=== PATIENT | female | born 1985 ===

== ENCOUNTER 2018-12-05 16:01 | Inpatient (IN) ==
[2018-12-05] MEDS ORDERED: Vancomycin (wt based) 1,000 MG VIAL IV STA (17:15)
[2018-12-05] MEDS ORDERED: Piperacillin/Tazobactam 3.375 GM in 0.9 % Sodium Chloride Mini Bag 100 ML IVPB ONE (17:15)
[2018-12-05 17:44] LABS: Basophils % 0.2 %; Eosinophils # 0.2 K/mcL (0.0-0.6); Eosinophils % 0.8 %; Hematocrit 27.9 % (35.3-44.9); Hemoglobin 8.5 g/dL (11.5-15.4); Immature Granulocytes % 1.3 % (0-4); Lymphocytes % 7.2 %; Mean Corpuscular HGB Conc 30.5 g/dL (31.6-35.5); Mean Corpuscular Hemoglobin 27.2 pg (28.0-33.3); Mean Corpuscular Volume 89.1 fL (83.0-100.0); Mean Platelet Volume 9.9 fL (9.4-12.4); Monocytes % 7.8 %; Neutrophils # 21.1 K/mcL (1.6-8.9); Platelet Count 382 K/mcL (140-400); Red Blood Count 3.13 M/mcL (3.82-4.97); Red Cell Distribution Width 15.4 % (11.5-14.5); Segmented Neutrophils % 82.7 %; White Blood Count 25.5 K/mcL (4.3-11.1)
[2018-12-05 17:45] LABS: Basophils # 0.1 K/mcL (0.0-0.2); Lymphocytes # 1.8 K/mcL (0.6-4.6)
[2018-12-05 18:02] LABS: Calcium 8.6 mg/dL (8.6-10.3)
[2018-12-05 18:04] LABS: Reactive Lymphocytes Present (Not Present)
[2018-12-05] MEDS ORDERED: 0.9 % Sodium Chloride 1,000 ML IVC ONE (18:20)
[2018-12-05] MEDS ORDERED: Ringers Solution, Lactated 1,000 ML IVC ONE ×2 (18:29→18:30)
[2018-12-05] MEDS ORDERED: Vancomycin 1,750 MG in 0.9 % Sodium Chloride 250 ML IVPB SCH (19:00)
[2018-12-05] MEDS ORDERED: Clindamycin 600 MG/50 ML 600 MG/50 ML IV.SOLN IVPB SCH (20:00)
[2018-12-05] MEDS ORDERED: Ondansetron ODT 4 MG TAB.RAPDIS SL PRN (20:24)
[2018-12-05] MEDS ORDERED: Naloxone 0.4 MG/ML INJ IVP PRN (20:24)
[2018-12-05] MEDS ORDERED: *HR* OxyCODONE Immed Rel 5 MG TABLET PO PRN (20:24)
[2018-12-05] MEDS ORDERED: *HR* Promethazine 25 MG/ML VIAL IVP PRN (20:24)
[2018-12-05] MEDS ORDERED: Acetaminophen 325 MG TABLET PO PRN (20:24)
[2018-12-05] MEDS ORDERED: Lidocaine -MPF 2% 2 ML VIAL ONE (21:24)
[2018-12-05] MEDS ORDERED: *HR* Propofol 200 MG/20 ML VIAL IVP ONE (21:24)
[2018-12-06] MEDS ORDERED: Piperacillin/Tazobactam 3.375 GM in 0.9 % Sodium Chloride Mini Bag 100 ML IVPB SCH
[2018-12-06] MEDS ORDERED: Vancomycin 1,000 MG VIAL ONE (00:30)
[2018-12-06] MEDS ORDERED: Famotidine 20 MG/2 ML VIAL ONE (00:40)
[2018-12-06] MEDS ORDERED: Acetaminophen IV 1,000 MG/100 ML INFUS..BTL ONE (00:40)
[2018-12-06] MEDS ORDERED: Bupivacaine-MPF 0.25% 10 ML VIAL ONE (00:42)
[2018-12-06] MEDS ORDERED: Acetaminophen IV 1,000 MG/100 ML INFUS..BTL IVPB ONE (00:55)
[2018-12-06] MEDS ORDERED: *HR* OxyCODONE Immed Rel 5 MG TABLET PO PRN (02:06)
[2018-12-06] MEDS ORDERED: *HR* Promethazine 25 MG/ML VIAL IVP PRN (02:06)
[2018-12-06] MEDS ORDERED: Acetaminophen 325 MG TABLET PO PRN (02:06)
[2018-12-06] MEDS ORDERED: Ringers Solution, Lactated 1,000 ML IVC ONE ×2 (02:06)
[2018-12-06] MEDS ORDERED: Vancomycin (wt based) 1,000 MG VIAL IV STA (02:06)
[2018-12-06] MEDS ORDERED: Ondansetron ODT 4 MG TAB.RAPDIS SL PRN (02:06)
[2018-12-06] MEDS ORDERED: Naloxone 0.4 MG/ML INJ IVP PRN (02:06)
[2018-12-06] MEDS: Clindamycin 600 MG/50 ML 600 MG/50 ML IV.SOLN IVPB SCH ×3 (05:22→22:02)
[2018-12-06 07:02] LABS: Basophils % 0.2 %; Eosinophils # 0.3 K/mcL (0.0-0.6); Eosinophils % 1.4 %; Hematocrit 25.2 % (35.3-44.9); Hemoglobin 7.6 g/dL (11.5-15.4); Immature Granulocytes % 1.3 % (0-4); Lymphocytes # 1.8 K/mcL (0.6-4.6); Lymphocytes % 8.5 %; Mean Corpuscular HGB Conc 30.2 g/dL (31.6-35.5); Mean Corpuscular Hemoglobin 26.8 pg (28.0-33.3); Mean Corpuscular Volume 88.7 fL (83.0-100.0); Mean Platelet Volume 9.9 fL (9.4-12.4); Monocytes # 1.9 K/mcL (0.0-1.3); Monocytes % 8.7 %; Neutrophils # 16.9 K/mcL (1.6-8.9); Platelet Count 320 K/mcL (140-400); Red Blood Count 2.84 M/mcL (3.82-4.97); Red Cell Distribution Width 15.2 % (11.5-14.5); Segmented Neutrophils % 79.9 %; White Blood Count 21.2 K/mcL (4.3-11.1)
[2018-12-06 07:19] LABS: Calcium 8.1 mg/dL (8.6-10.3); Potassium 3.8 mEq/L (3.5-5.1)
[2018-12-06] MEDS: Venlafaxine XR (24 HR) 150 MG CAP.ER.24H PO SCH (08:14)
[2018-12-06] MEDS: Piperacillin/Tazobactam 3.375 GM in 0.9 % Sodium Chloride Mini Bag 100 ML IVPB SCH ×2 (08:18→17:05)
[2018-12-06] MEDS ORDERED: Venlafaxine XR (24 HR) 150 MG CAP.ER.24H PO SCH (09:00)
[2018-12-06] MEDS ORDERED: 0.9 % Sodium Chloride 1,000 ML IVC SCH (14:45)
[2018-12-06] MEDS ORDERED: Cefepime HCl 2,000 MG in 0.9 % Sodium Chloride Mini Bag 100 ML IVPB SCH (18:28)
[2018-12-07] MEDS: Piperacillin/Tazobactam 3.375 GM in 0.9 % Sodium Chloride Mini Bag 100 ML IVPB SCH ×3 (00:45→16:36)
[2018-12-07] MEDS: Clindamycin 600 MG/50 ML 600 MG/50 ML IV.SOLN IVPB SCH ×2 (05:30→13:05)
[2018-12-07 06:33] LABS: Hematocrit 25.6 % (35.3-44.9); Hemoglobin 7.8 g/dL (11.5-15.4); Mean Corpuscular HGB Conc 30.5 g/dL (31.6-35.5); Mean Corpuscular Hemoglobin 26.8 pg (28.0-33.3); Mean Platelet Volume 10.1 fL (9.4-12.4); Platelet Count 332 K/mcL (140-400); Red Blood Count 2.91 M/mcL (3.82-4.97); Red Cell Distribution Width 14.9 % (11.5-14.5); White Blood Count 17.8 K/mcL (4.3-11.1)
[2018-12-07 06:50] LABS: Calcium 7.6 mg/dL (8.6-10.3); Potassium 3.6 mEq/L (3.5-5.1)
[2018-12-07] MEDS: Venlafaxine XR (24 HR) 150 MG CAP.ER.24H PO SCH (07:55)
[2018-12-07] MEDS ORDERED: 0.9 % Sodium Chloride 1,000 ML IVC SCH (13:45)
[2018-12-07] MEDS: Lactobacillus 1 EACH CAP.SPRINK PO SCH (14:33)
[2018-12-08] MEDS: Piperacillin/Tazobactam 3.375 GM in 0.9 % Sodium Chloride Mini Bag 100 ML IVPB SCH ×4 (00:05→23:31)
[2018-12-08 02:55] LABS: Hematocrit 24.2 % (35.3-44.9); Hemoglobin 7.5 g/dL (11.5-15.4); Mean Corpuscular Hemoglobin 27.2 pg (28.0-33.3); Mean Corpuscular Volume 87.7 fL (83.0-100.0); Mean Platelet Volume 10.1 fL (9.4-12.4); Platelet Count 328 K/mcL (140-400); Red Blood Count 2.76 M/mcL (3.82-4.97); White Blood Count 16.6 K/mcL (4.3-11.1)
[2018-12-08 03:15] LABS: Calcium 7.4 mg/dL (8.6-10.3); Potassium 3.3 mEq/L (3.5-5.1)
[2018-12-08] MEDS: Lactobacillus 1 EACH CAP.SPRINK PO SCH (10:52)
[2018-12-08] MEDS: Venlafaxine XR (24 HR) 150 MG CAP.ER.24H PO SCH (10:55)
[2018-12-09] MEDS ORDERED: Lidocaine -MPF 2% 2 ML VIAL ONE (07:29)
[2018-12-09] MEDS ORDERED: Propofol 500 MG/50 ML INFUS..BTL ONE (07:29)
[2018-12-09] MEDS ORDERED: *HR* Midazolam HCl 2 MG/2 ML VIAL ONE (07:29)
[2018-12-09] MEDS ORDERED: *HR* FentaNYL (PF) 100 MCG/2 ML VIAL ONE (07:29)
[2018-12-09 07:58] LABS: Calcium 7.6 mg/dL (8.6-10.3); Potassium 3.7 mEq/L (3.5-5.1)
[2018-12-09] MEDS ORDERED: Vancomycin 1,000 MG VIAL ONE (08:03)
[2018-12-09] MEDS ORDERED: Lidocaine 1% 20 ML MDV ONE (08:09)
[2018-12-09] MEDS ORDERED: Bupivacaine/EPI 1:200k 0.25%PF 30 ML VIAL ONE (08:09)
[2018-12-09] MEDS ORDERED: *HR* Propofol 200 MG/20 ML VIAL IVP ONE (08:49)
[2018-12-09] MEDS ORDERED: Naloxone 0.4 MG/ML INJ IVP PRN (09:28)
[2018-12-09] MEDS ORDERED: *HR* Promethazine 25 MG/ML VIAL IVP PRN (09:28)
[2018-12-09] MEDS ORDERED: Ondansetron ODT 4 MG TAB.RAPDIS SL PRN (09:28)
[2018-12-09] MEDS ORDERED: Acetaminophen 325 MG TABLET PO PRN (09:28)
[2018-12-09] MEDS: Piperacillin/Tazobactam 3.375 GM in 0.9 % Sodium Chloride Mini Bag 100 ML IVPB SCH (17:17)
[2018-12-10] MEDS: Piperacillin/Tazobactam 3.375 GM in 0.9 % Sodium Chloride Mini Bag 100 ML IVPB SCH ×2 (00:34→10:31)
[2018-12-10 06:23] LABS: Hematocrit 25.6 % (35.3-44.9); Hemoglobin 7.7 g/dL (11.5-15.4); Mean Corpuscular HGB Conc 30.1 g/dL (31.6-35.5); Mean Corpuscular Hemoglobin 26.8 pg (28.0-33.3); Mean Corpuscular Volume 89.2 fL (83.0-100.0); Mean Platelet Volume 9.5 fL (9.4-12.4); Platelet Count 341 K/mcL (140-400); Red Blood Count 2.87 M/mcL (3.82-4.97); Red Cell Distribution Width 15.1 % (11.5-14.5); White Blood Count 15.2 K/mcL (4.3-11.1)
[2018-12-10 06:50] LABS: Calcium 7.5 mg/dL (8.6-10.3); Potassium 3.6 mEq/L (3.5-5.1)
[2018-12-10] MEDS: Venlafaxine XR (24 HR) 150 MG CAP.ER.24H PO SCH (10:32)
[2018-12-10] MEDS: Lactobacillus 1 EACH CAP.SPRINK PO SCH (10:32)
[2018-12-10] MEDS: metroNIDAZOLE 500 MG TABLET PO SCH ×2 (18:39→21:56)
[2018-12-10] MEDS: cefTRIAXone 2,000 MG in Water for inj. (sterile) 20 ML IVP SCH (18:39)
[2018-12-11] MEDS ORDERED: Lidocaine -MPF 1% 5 ML AMPUL INFILT ONE (09:19)
[2018-12-11] MEDS: Venlafaxine XR (24 HR) 150 MG CAP.ER.24H PO SCH (09:23)
[2018-12-11] MEDS: metroNIDAZOLE 500 MG TABLET PO SCH ×2 (09:23→15:56)
[2018-12-11] MEDS: Lactobacillus 1 EACH CAP.SPRINK PO SCH (09:23)
[2018-12-11] MEDS: cefTRIAXone 2,000 MG in Water for inj. (sterile) 20 ML IVP SCH (09:24)
[2018-12-11 09:34] LABS: Calcium 7.8 mg/dL (8.6-10.3); Potassium 3.9 mEq/L (3.5-5.1)
[2018-12-11 10:18] LABS: INR 1.2; Prothrombin Time 13.1 Seconds (9.4-12.1)
[2018-12-11 11:18] VITALS: BP 134/92
[2018-12-11] MEDS ORDERED: Heparin 1,000 UNITS/500 mL 500 ML ONE (14:20)
[2018-12-11] MEDS ORDERED: *HR* FentaNYL (PF) 100 MCG/2 ML VIAL ONE (14:29)
[2018-12-11] MEDS ORDERED: 0.9 % Sodium Chloride 500 ML ONE (14:29)
[2018-12-11] MEDS ORDERED: Aminoglycoside Consult 1 EACH MC ONE (17:33)
== END 2018-12-11 17:34 | disposition home health service (06) | DRG 853 ==
LOC: EMEROOARM 16:01 → 3ANU 16:01 → SUATTDRO 20:35 → 3ANU 21:43
PROVIDERS: ADMIT Internal Medicine; ATTEND Internal Medicine